=== PATIENT | male | born 1970 | race Caucasian/White ===

== ENCOUNTER 2018-05-18 06:23 | Observation (INO) ==
[2018-05-18] MEDS ORDERED: NITROGLYCERIN 2% OINT 1 INCH/GM PACK TOP STA (06:38)
[2018-05-18] MEDS ORDERED: ASPIRIN 325 MG TABLET PO STA (06:38)
[2018-05-18 06:46] LABS: Basophils % 0.4 % (0.0-0.8); Eosinophils # 0.1 10*3/uL (0.0-0.87); Eosinophils % 0.6 % (0.00-10.9); Hematocrit 42.7 VOL% (42.0-52.0); Hemoglobin 14.3 GM/DL (14.0-18.0); Immature Granulocytes % 0.7 %; Immature Granulocytes Absolute 0.08 #; Lymphocytes % 25.9 % (21.2-54.2); Mean Corpuscular HGB Conc 33.5 GM/DL (32-36); Mean Corpuscular Hemoglobin 31 PG (27-34); Mean Corpuscular Volume 92.4 FL (87-102); Mean Platelet Volume 9.7 FL (9.6-12.0); Monocytes # 0.9 10*3/uL (0.11-0.8); Monocytes % 7.9 % (1.7-12.7); Neutrophils # 7.4 10*3/uL (1.4-7.4); Neutrophils % 64.5 % (38.7-73.9); Platelet Count 175 T/CUMM (130-400); Red Blood Count 4.62 MC/CUMM (3.8-5.5); Red Cell Distribution Width 14.2 % (9.3-17.3); White Blood Count 11.4 T/CUMM (4-12)
[2018-05-18 07:07] LABS: Alanine Aminotransferase 28 U/L (16-61); Albumin 3.7 G/DL (3.4-5.0); Alkaline Phosphatase 112 U/L (45-117); Aspartate Amino Transferase 19 U/L (0-37); Bilirubin,Total < 0.39 MG/DL (0.2-1.0); Blood Urea Nitrogen 7 MG/DL (7-18); Calcium 8.3 MG/DL (8.5-10.1); Glucose 93 MG/DL (74-106); Osmolality,Calculated 283.8 MOS/KG (273-304); Potassium 3.6 MMOL/L (3.5-5.1); Sodium 144 MMOL/L (136-145); Total Protein 7.2 G/DL (6.4-8.3)
[2018-05-18 08:03] LABS: Apearance,Urine CLEAR (Clear); Bilirubin,Urine Negative (Negative); Blood, Urine Negative (Negative); Glucose,Urine (UA) Negative (Negative); Ketones,Urine Negative (Negative); Nitrite,Urine Negative (Negative); Protein,Urine Negative; Squamous Epithelial Cell,Urine Occasional /HPF (0-10); Urine Color Straw (Yellow); Urine Specific Gravity 1.002 (1.001-1.035); Urine Urobilinogen < 2.0 EU/DL (0.2-1.0); WBC,Urine <1 /HPF (0-6)
[2018-05-18] MEDS ORDERED: MAGNESIUM SULF RIDER 2 GM in PREMIX 1 EACH IV PRN (09:01)
[2018-05-18] MEDS ORDERED: MAGNESIUM SULF RIDER 4 GM in PREMIX 1 EACH IV PRN (09:01)
[2018-05-18] MEDS ORDERED: ZALEPLON 5 MG CAPSULE PO PRN (09:01)
[2018-05-18] MEDS ORDERED: POTASSIUM CHLORIDE 20 MEQ TABLET PO PRN (09:01)
[2018-05-18] MEDS ORDERED: ONDANSETRON 4 MG/2 ML VIAL IV PRN (09:01)
[2018-05-18] MEDS ORDERED: tiZANidine 4 MG TABLET PO PRN (10:45)
[2018-05-18] MEDS ORDERED: NITROGLYCERIN SL 0.4 MG TABLET SL PRN (10:45)
[2018-05-18] MEDS: MULTIVITAMIN (CENTRUM) TABLET PO SCH (11:17)
[2018-05-18] MEDS: ENOXAPARIN 40 MG/0.4 ML SYRINGE SUBCUT SCH (11:30)
[2018-05-18] MEDS: SODIUM CHLORIDE 0.45% 1,000 ML IV SCH (11:30)
[2018-05-18] MEDS: OMEGA 3 ACID ETHYL ESTERS 1 GM CAPSULE PO SCH (11:30)
[2018-05-18] MEDS: ALBUTEROL/IPRATROPIUM 3 ML NEB RESP TX SCH ×2 (13:45→19:07)
[2018-05-18] MEDS: GABAPENTIN 100 MG CAPSULE PO SCH ×2 (14:50→21:51)
[2018-05-18] MEDS: CAPTOPRIL 12.5 MG TABLET PO SCH ×2 (14:50→21:50)
[2018-05-18] MEDS: KETOROLAC 30 MG/1 ML VIAL IV SCH ×2 (17:22→21:50)
[2018-05-18] MEDS ORDERED: clonazePAM 0.5 MG TABLET PO SCH (21:00)
[2018-05-18] MEDS: CARVEDILOL 25 MG TABLET PO SCH (21:50)
[2018-05-18] MEDS: busPIRone 15 MG TABLET PO SCH (21:53)
[2018-05-19] MEDS: SODIUM CHLORIDE 0.45% 1,000 ML IV SCH (00:06)
[2018-05-19] MEDS: ALBUTEROL/IPRATROPIUM 3 ML NEB RESP TX SCH ×2 (00:14→07:05)
[2018-05-19] MEDS: KETOROLAC 30 MG/1 ML VIAL IV SCH ×2 (05:09→09:59)
[2018-05-19 06:33] LABS: Calcium 8.2 MG/DL (8.5-10.1); Osmolality,Calculated 284.8 MOS/KG (273-304); Potassium 3.9 MMOL/L (3.5-5.1)
[2018-05-19 06:40] LABS: Cholesterol 134 MG/DL (50-200); HDL Cholesterol 36 MG/DL (40-60); Risk Ratio 3.72; Triglycerides 155 MG/DL (2-150); Troponin I < 0.015 NG/ML (0.00-0.045)
[2018-05-19 07:38] VITALS: BP 127/59
[2018-05-19] MEDS ORDERED: ATORVASTATIN 80 MG TABLET PO SCH (09:00)
[2018-05-19] MEDS ORDERED: PANTOPRAZOLE 40 MG TABLET PO SCH (09:00)
[2018-05-19] MEDS ORDERED: ASPIRIN EC 81 MG TABLET PO SCH (09:00)
[2018-05-19] MEDS ORDERED: CLOPIDOGREL 75 MG TABLET PO SCH (09:00)
[2018-05-19] MEDS ORDERED: NON-FORMULARY MEDICATION (Esomeprazole Magnesium [Nexium] 20 MG) PO SCH (09:00)
[2018-05-19] MEDS: OMEGA 3 ACID ETHYL ESTERS 1 GM CAPSULE PO SCH (09:23)
[2018-05-19] MEDS: GABAPENTIN 100 MG CAPSULE PO SCH (09:23)
[2018-05-19] MEDS: busPIRone 15 MG TABLET PO SCH (09:24)
[2018-05-19] MEDS: CARVEDILOL 25 MG TABLET PO SCH (09:24)
[2018-05-19] MEDS: MULTIVITAMIN (CENTRUM) TABLET PO SCH (09:26)
[2018-05-19] MEDS: CAPTOPRIL 12.5 MG TABLET PO SCH (09:57)
[2018-05-19] MEDS: ENOXAPARIN 40 MG/0.4 ML SYRINGE SUBCUT SCH (09:58)
== END 2018-05-19 10:46 | disposition home or self-care (01) ==
LOC: N.ED 06:23 → N.EDINP 06:23 → N.TELES 10:30
PROVIDERS: ADMIT Internal Medicine Cardiovascular Disease; ATTEND Internal Medicine Cardiovascular Disease